=== PATIENT | female | born 1975 | race Caucasian/White ===

== ENCOUNTER → 2020-10-15 | Outpatient (CLI) | payer OTHER ==
[~2020-10-15] MED LIST: FEXOFENADINE H180 MG PO; GABAPENTIN800 MG PO; K-DUR TAB 20 M20 MEQ PO; KEPPRA1000 MG PO; KEPPRA500 MG PO; MIRTAZAPINE15 MG PO; TENORMIN 25 MG25 MG PO; ZOLPIDEM TARTRA10 MG PO
== END ==
LOC: KOH-I 14:45
DX: M54.5 Low back pain (principal); M54.2 Cervicalgia; M54.6 Pain in thoracic spine; M47.812 Spondylosis without myelopathy or radiculopathy, cervical region; M47.814 Spondylosis without myelopathy or radiculopathy, thoracic region; M47.816 Spondylosis without myelopathy or radiculopathy, lumbar region
CPT/HCPCS: 72050; 72070; 72110

== ENCOUNTER 2021-04-04 18:49 | Emergency (ER) | payer OTHER ==
[~2021-04-04 18:49] MED LIST changes: -FEXOFENADINE H180 MG PO; -GABAPENTIN800 MG PO; -MIRTAZAPINE15 MG PO; -TENORMIN 25 MG25 MG PO; -ZOLPIDEM TARTRA10 MG PO
[2021-04-04 19:34] LABS: HEMOGLOBIN 14.1 gm/dl (12.3-15.3); RED BLOOD COUNT 4.58 M/UL (4.00-5.10)
[2021-04-04 19:45] LABS: BUN/CREATININE RATIO 11 (0-10)
[2021-04-04] MEDS ORDERED: KEPPRA1000 MG PO (21:37)
== END 2021-04-04 22:03 | disposition home or self-care (01) ==
LOC: ER1 18:49
PROVIDERS: Emergency Medicine
DX: R56.9 Unspecified convulsions (principal); I10 Essential (primary) hypertension; Z20.822 Contact with and (suspected) exposure to COVID-19
CPT/HCPCS: 0240U; 70450; 71045; 80053; 80307; 81001; 82550; 82553; 83690; 83735; 83874; 84100; 84484; 84703; 85025; 85610; 93005; 96374; 96375; 99285; J1953; J2060

== ENCOUNTER 2021-04-24 16:49 | Inpatient (IN) | payer OTHER ==
[~2021-04-24] VITALS: Ht 160 cm; Wt 103.9 kg
[2021-04-24 17:28] LABS: HEMOGLOBIN 13.9 gm/dl (12.3-15.3); RED BLOOD COUNT 4.47 M/UL (4.00-5.10); WHITE BLOOD COUNT 5.3 K/UL (4.5-11.0)
[2021-04-24 17:52] LABS: BUN/CREATININE RATIO 7 (0-10)
[2021-04-24] MEDS ORDERED: GABAPENTIN800 MG PO (21:33)
[2021-04-25] MEDS ORDERED: FEXOFENADINE H180 MG PO (06:57)
[2021-04-25 11:31] LABS: ADENOVIRUS F 40/41 Not Detected (Negative); ASTROVIRUS Not Detected (Negative); CAMPYLOBACTER Not Detected (Negative); CRYPTOSPORIDIUM Not Detected (Negative); E.COLI 0157 Not Detected (Negative); ENTAMOEBA HISTOLYTICA Not Detected (Negative); ENTEROAGGREGATIVE E.COLI (EAEC Not Detected (Negative); ENTEROPATHOGENIC E.COLI (EPEC) Not Detected (Negative); ENTEROTOXIGENIC E.COLI (ETEC) Not Detected (Negative); GIARDIA LAMBLIA Not Detected (Negative); NOROVIRUS GI/GII Not Detected (Negative); PLESIOMONAS SHIGELLOIDES Not Detected (Negative); ROTOVIRUS A Not Detected (Negative); SALMONELLA Not Detected (Negative); SAPOVIRUS Not Detected (Negative); SHIG/ENTEROINVAS.ECOLI (EIEC) Not Detected (Negative); SHIGA-LIK TOX.PRO.E.COLI (STEC Not Detected (Negative); VIBRIO Not Detected (Negative); VIBRIO CHOLERAE Not Detected (Negative); YERSINIA ENTEROCOLITICA Not Detected (Negative)
[2021-04-25 14:00] LABS: CLOSTRIDIUM DIFFICILE TOX A/B DETECTED (Negative)
[2021-04-25] MEDS ORDERED: TENORMIN 25 MG25 MG PO (21:33)
[2021-04-25] MEDS ORDERED: MIRTAZAPINE15 MG PO (21:33)
[2021-04-25] MEDS ORDERED: ZOLPIDEM TARTRA10 MG PO (21:33)
--- NOTE | 2021-04-26 01:57 | NUR ---
PATIENT REQUEST THAT I TAKE IV OUT AND REFUSES TO ACCESS ANOTHER. I SPOKE TO MD AND HE IS AWARE THAT THE PATIENT DOES NOT WANT THE IV AND IS REFUSING ANOTHER. I SPOKE TO THE PATIENT REGARDING THE IMPORTANCE OF KEEPING THE IV. AFTER TELLING THE PATIENT THAT THE DOCTOR DID NOT WANT US TO TAKE OUT THE IV, SHE TOOK IT OUT HERSELF AND REFUSED ANOTHER.
== END 2021-04-26 14:38 | disposition left against medical advice (07) | DRG 918 ==
LOC: ER1 16:49 → CCU 20:39 → CDU 20:39 → CCU 04-25 01:30 → PROG CARE 04-25 18:22
PROVIDERS: Emergency Medicine; Internal Medicine; ADMIT Internal Medicine
DX: T40.2X2A Poisoning by other opioids, intentional self-harm, initial encounter (principal); A04.72 Enterocolitis due to Clostridium difficile, not specified as recurrent; Z68.41 Body mass index [BMI] 40.0-44.9, adult; F32.2 Major depressive disorder, single episode, severe without psychotic features; T43.592A Poisoning by other antipsychotics and neuroleptics, intentional self-harm, initial encounter; Z20.822 Contact with and (suspected) exposure to COVID-19; T43.022A Poisoning by tetracyclic antidepressants, intentional self-harm, initial encounter; T14.91XA Suicide attempt, initial encounter; R00.1 Bradycardia, unspecified; G40.909 Epilepsy, unspecified, not intractable, without status epilepticus; F32.9 Major depressive disorder, single episode, unspecified; F19.90 Other psychoactive substance use, unspecified, uncomplicated; Z53.29 Procedure and treatment not carried out because of patient's decision for other reasons; F41.9 Anxiety disorder, unspecified; G47.00 Insomnia, unspecified; E66.8 Other obesity; G89.29 Other chronic pain; Z98.51 Tubal ligation status; Y92.89 Other specified places as the place of occurrence of the external cause; Z82.49 Family history of ischemic heart disease and other diseases of the circulatory system
CPT/HCPCS: 36415; 71045; 80053; 80061; 80307; 82550; 82553; 83036; 83735; 83874; 84100; 84484; 85025; 87507; 93005; 99285; J1650; J7030; U0002